=== PATIENT | male | born 1930 | race Caucasian/White ===

== ENCOUNTER 2018-01-03 13:03 | Emergency (ER) | payer MEDICARE ==
[~2018-01-03] VITALS: Ht 177.8 cm; Wt 77.1 kg
[2018-01-03 13:08] VITALS: Ht 177.8 cm; Wt 77.1 kg
[2018-01-03 14:20] LABS: BASOPHIL % 0.5 % (0-2); PLATELET COUNT 162 x10^3mcL (130-400); RED CELL DISTRIBUTION WIDTH 14.5 % (11.5-14.5)
[2018-01-03 14:40] LABS: CK-MB 1.9 ng/mL (0-3.6)
[2018-01-03 14:51] LABS: CALCIUM 8.9 mg/dL (8.5-10.1); CARBON DIOXIDE 34.5 mmol/L (21-32); CHLORIDE SERUM 105 mmol/L (98-107); CREATININE SERUM 1.2 mg/dL (0.7-1.3); GLUCOSE SERUM 101 mg/dL (74-106); POTASSIUM SERUM 3.9 mmol/L (3.5-5.1); SODIUM SERUM 144 mmol/L (136-145)
[2018-01-03 14:58] LABS: ALBUMIN 3.3 g/dL (3.4-5.0); ALKALINE PHOSPHATASE 88 U/L (46-116); ALT/SGPT 33 U/L (16-63); AST/SGOT 28 U/L (15-37); BILIRUBIN TOTAL 0.6 mg/dL (0.20-1.00)
[2018-01-03 19:53] VITALS: BP 132/77
== END 2018-01-03 19:21 | disposition short-term general hospital (02) ==
LOC: ED 13:03
PROVIDERS: Emergency Medicine
DX: J44.1 Chronic obstructive pulmonary disease with (acute) exacerbation (principal); R09.02 Hypoxemia; I10 Essential (primary) hypertension; F17.210 Nicotine dependence, cigarettes, uncomplicated; Z91.041 Radiographic dye allergy status; Z98.890 Other specified postprocedural states; Z71.6 Tobacco abuse counseling
CPT/HCPCS: 36600; 83880; 99406; J1956; J2930; J3490; J7613; J7644; Q0092

== ENCOUNTER 2018-02-09 19:46 | Emergency (ER) | payer MEDICARE ==
[~2018-02-09] VITALS: Ht 177.8 cm; Wt 86.2 kg
[2018-02-09 19:49] VITALS: Ht 177.8 cm; Wt 86.2 kg
[2018-02-09 20:47] LABS: BASOPHIL % 0.5 % (0-2); PLATELET COUNT 136 x10^3mcL (130-400)
[2018-02-09 20:52] LABS: RED CELL DISTRIBUTION WIDTH 16.8 % (11.5-14.5)
[2018-02-09 21:13] LABS: CALCIUM 8.8 mg/dL (8.5-10.1); CARBON DIOXIDE 35.4 mmol/L (21-32); CHLORIDE SERUM 103 mmol/L (98-107); CREATININE SERUM 1.1 mg/dL (0.7-1.3); GLUCOSE SERUM 121 mg/dL (74-106); POTASSIUM SERUM 3.7 mmol/L (3.5-5.1); SODIUM SERUM 145 mmol/L (136-145)
[2018-02-09 21:18] LABS: ALKALINE PHOSPHATASE 71 U/L (46-116); ALT/SGPT 19 U/L (16-63); AST/SGOT 27 U/L (15-37); BILIRUBIN TOTAL 1.1 mg/dL (0.20-1.00); CHOLESTEROL 171 mg/dL (<200); HDL CHOLESTEROL 54 mg/dL (40-60); TOTAL PROTEIN, SERUM 7.2 g/dL (6.4-8.2)
[2018-02-09 21:23] LABS: ALBUMIN 3.3 g/dL (3.4-5.0)
[2018-02-09 23:54] LABS: microscopic required? YES; urine erythrocyte 1+ (NEGATIVE)
[2018-02-10 00:54] VITALS: BP 134/79
== END 2018-02-10 00:54 | disposition short-term general hospital (02) ==
LOC: ED 19:46
PROVIDERS: Emergency Medicine
DX: I50.9 Heart failure, unspecified (principal); J44.1 Chronic obstructive pulmonary disease with (acute) exacerbation; F17.210 Nicotine dependence, cigarettes, uncomplicated; I11.9 Hypertensive heart disease without heart failure; R22.41 Localized swelling, mass and lump, right lower limb; R22.42 Localized swelling, mass and lump, left lower limb; Z98.890 Other specified postprocedural states; Z88.8 Allergy status to other drugs, medicaments and biological substances
CPT/HCPCS: 36600; 83880; 99406; J1940; J2930; J7030; J7613; Q0092

== ENCOUNTER 2018-04-12 22:38 | Inpatient (IN) | payer MEDICARE ==
[~2018-04-12] VITALS: Ht 180.3 cm; Wt 79.8 kg
[2018-04-12 22:40] VITALS: Ht 180.3 cm; Wt 79.8 kg
[2018-04-12 23:21] LABS: BASOPHIL % 0.4 % (0-2); PLATELET COUNT 182 x10^3mcL (130-400)
[2018-04-12 23:25] LABS: RED CELL DISTRIBUTION WIDTH 16.1 % (11.5-14.5)
[2018-04-12 23:27] LABS: CARBON DIOXIDE 34.7 mmol/L (21-32); CHLORIDE SERUM 99 mmol/L (98-107); GLUCOSE SERUM 104 mg/dL (74-106); POTASSIUM SERUM 3.8 mmol/L (3.5-5.1); SODIUM SERUM 138 mmol/L (136-145)
[2018-04-12 23:33] LABS: ALBUMIN 3.8 g/dL (3.4-5.0); ALKALINE PHOSPHATASE 75 U/L (46-116); ALT/SGPT 30 U/L (16-63); AST/SGOT 26 U/L (15-37); BILIRUBIN TOTAL 0.6 mg/dL (0.20-1.00); TOTAL PROTEIN, SERUM 7.8 g/dL (6.4-8.2)
[2018-04-13] VITALS (8 sets, daily range): BP systolic 97–157; BP diastolic 49–79
[2018-04-13] MEDS ORDERED: TERAZOSIN HCL2 MG PO (00:07)
[2018-04-13] MEDS ORDERED: ISOSORBIDE MONO30 MG PO (00:08)
[2018-04-13] MEDS ORDERED: K-TAB10 MEQ PO (00:09)
[2018-04-13] MEDS ORDERED: FUROSEMIDE40 MG PO (00:09)
[2018-04-13] MEDS ORDERED: CARDIZEM CD180 MG (00:10)
[2018-04-13] MEDS ORDERED: LIPI20 PO (00:11)
[2018-04-13] MEDS ORDERED: LISINOPRIL2.5 MG PO (00:11)
[2018-04-13] MEDS ORDERED: BISOPROLOL FUMAR5 MG PO (00:11)
[2018-04-13] MEDS ORDERED: ADV250/50 INH (00:12)
[2018-04-13] MEDS ORDERED: KROGER NIC21 MG/24 H TOP (00:12)
[2018-04-13 01:47] LABS: MAGNESIUM 2.2 mg/dL (1.8-2.4); PHOSPHOROUS 4.5 mg/dL (2.5-4.9)
[2018-04-13 01:55] LABS: CHOLESTEROL/HDL RATIO 2.5; T3 TOTAL 0.95 ng/mL
[2018-04-13 02:00] LABS: FREE T4 1.25 ng/dL (0.76-1.46); FREE THYROXINE INDEX 3.2 ug/dL (1.4-4.5); T4(THYROXINE) 8.5 ug/dL (4.7-13.3)
[2018-04-13 04:58] LABS: microscopic required? YES; urine erythrocyte TRACE (NEGATIVE)
[2018-04-13 05:07] LABS: AMPHETAMINE QUAL UR NONE DETECTED (See below)
[2018-04-13 06:49] LABS: BASOPHIL % 0.2 % (0-2); PLATELET COUNT 177 x10^3mcL (130-400)
[2018-04-13 06:55] LABS: RED CELL DISTRIBUTION WIDTH 16.4 % (11.5-14.5)
[2018-04-13 07:08] LABS: CARBON DIOXIDE 35.9 mmol/L (21-32); CHLORIDE SERUM 99 mmol/L (98-107); CREATININE SERUM 1.1 mg/dL (0.7-1.3); GLUCOSE SERUM 127 mg/dL (74-106); MAGNESIUM 2.6 mg/dL (1.8-2.4); PHOSPHOROUS 5.7 mg/dL (2.5-4.9); POTASSIUM SERUM 4.5 mmol/L (3.5-5.1); SODIUM SERUM 138 mmol/L (136-145)
[2018-04-14 05:41] VITALS: BP 129/55
[2018-04-14 06:51] LABS: CALCIUM 8.9 mg/dL (8.5-10.1); CARBON DIOXIDE 34.9 mmol/L (21-32); CHLORIDE SERUM 99 mmol/L (98-107); CREATININE SERUM 1.2 mg/dL (0.7-1.3); GLUCOSE SERUM 162 mg/dL (74-106); MAGNESIUM 2.2 mg/dL (1.8-2.4); PHOSPHOROUS 4.7 mg/dL (2.5-4.9); POTASSIUM SERUM 5.3 mmol/L (3.5-5.1); SODIUM SERUM 135 mmol/L (136-145)
[2018-04-14 07:04] LABS: PLATELET COUNT 190 x10^3mcL (130-400)
[2018-04-14 07:05] LABS: BASOPHIL % 0 % (0-2); RED CELL DISTRIBUTION WIDTH 16.3 % (11.5-14.5)
[2018-04-14 13:46] VITALS: BP 107/41
[2018-04-14 17:17] VITALS: BP 101/49
[2018-04-14 21:06] VITALS: BP 106/62
[2018-04-15 05:32] VITALS: BP 116/52
[2018-04-15 06:47] LABS: BASOPHIL % 0.1 % (0-2); PLATELET COUNT 182 x10^3mcL (130-400)
[2018-04-15 06:53] LABS: RED CELL DISTRIBUTION WIDTH 16.7 % (11.5-14.5)
[2018-04-15 07:04] LABS: CALCIUM 9.1 mg/dL (8.5-10.1); CARBON DIOXIDE 34.2 mmol/L (21-32); CHLORIDE SERUM 99 mmol/L (98-107); CREATININE SERUM 1.2 mg/dL (0.7-1.3); GLUCOSE SERUM 170 mg/dL (74-106); MAGNESIUM 2.4 mg/dL (1.8-2.4); PHOSPHOROUS 3.7 mg/dL (2.5-4.9); POTASSIUM SERUM 4.9 mmol/L (3.5-5.1); SODIUM SERUM 140 mmol/L (136-145)
[2018-04-15 09:32] VITALS: BP 138/60
[2018-04-15 12:37] VITALS: BP 125/53
[2018-04-15 16:58] VITALS: BP 122/56
[2018-04-15 20:31] VITALS: BP 140/63
[2018-04-15 21:39] VITALS: BP 140/63
== END 2018-04-15 23:33 | disposition short-term general hospital (02) | DRG 291 ==
LOC: ED 22:38 → DU 04-13 00:47
PROVIDERS: Emergency Medicine; ADMIT Internal Medicine
DX: I11.0 Hypertensive heart disease with heart failure (principal); J96.01 Acute respiratory failure with hypoxia; N17.0 Acute kidney failure with tubular necrosis; J18.1 Lobar pneumonia, unspecified organism; J44.1 Chronic obstructive pulmonary disease with (acute) exacerbation; G72.81 Critical illness myopathy; I50.43 Acute on chronic combined systolic (congestive) and diastolic (congestive) heart failure; E78.5 Hyperlipidemia, unspecified; E87.5 Hyperkalemia; E83.39 Other disorders of phosphorus metabolism; E83.41 Hypermagnesemia; N40.0 Benign prostatic hyperplasia without lower urinary tract symptoms; I25.10 Atherosclerotic heart disease of native coronary artery without angina pectoris; Z95.1 Presence of aortocoronary bypass graft; Z68.24 Body mass index [BMI] 24.0-24.9, adult
CPT/HCPCS: 36600; 83880; 84439; 87804; 94150; J0456; J0696; J1940; J1956; J2920; J2930; J7030; J7040; J7050; J7613; J7620; J7626; J7644; Q0092